=== PATIENT | female | born 1940 | race Caucasian/White ===

== ENCOUNTER 2017-10-17 18:32 | Emergency (ER) | payer MEDICARE, BC ==
--- NOTE | 2017-10-17 19:26 | NUR ---
Patient left without being triaged or seen by ERMD
== END 2017-10-17 19:30 | disposition left against medical advice (07) ==
LOC: ER 18:35
DX: Z53.21 Procedure and treatment not carried out due to patient leaving prior to being seen by health care provider (principal)